=== PATIENT | male | born 1955 | race Caucasian/White ===

== ENCOUNTER 2024-05-12 12:59 | Emergency (ER) | payer MEDICARE, SELFPAY ==
[2024-05-12 13:02] VITALS: BP 146/100
[2024-05-12 13:31] LABS: % Basophils 0.9 % (0-2); % Eosinophils 4.5 % (0-6); % Immature Granulocytes 0.1 % (0-0.5); % Lymphocytes 28.9 % (20.5-51.1); % Monocytes 7.1 % (1.7-9.3); % Neutrophils 58.5 % (42.2-75.2); Absolute Basophils 0.1 10^3/uL (0-0.2); Absolute Eosinophils 0.3 10^3/uL (0-0.7); Absolute Monocytes 0.5 10^3/uL (0.1-0.6); Hematocrit 41.9 % (39.0-52.0); Hemoglobin 14.9 g/dL (13.0-18.0); Mean Corp Hgb Conc. 35.6 g/dL (33.0-37.0); Mean Corpuscular Hgb 31.7 pg (27.0-31.0); Mean Corpuscular Volume 89.1 fL (80.0-94.0); Mean Platelet Volume 10.2 fL (7.4-10.4); Nucleated Red Blood Cells % 0 % (-); Platelet Count 207 10^3/uL (130-400); Red Cell Dist. Width 12.9 % (11.5-14.5); White Blood Cell Count 6.9 10^3/uL (4.8-10.8)
[2024-05-12 13:38] LABS: ALT (SGPT) 13 U/L (0-50); AST (SGOT) 25 U/L (17-59); Albumin 4.9 g/dl (3.5-5.0); Alkaline Phosphatase 53 U/L (38-126); Blood Urea Nitrogen 19 mg/dl (9-20); Calcium 9.7 mg/dl (8.4-10.2); Carbon Dioxide 26 mmol/L (22-30); Chloride 101 mmol/L (98-107); Glucose 162 mg/dl (70-99); Potassium 4.4 mmol/L (3.5-5.1); Sodium 140 mmol/L (135-145); Total Protein 8.1 g/dl (6.3-8.2); eGFR > 60.00
--- NOTE | 2024-05-12 13:47 | ED.GENMED ---
History of Present Illness
General
Chief Complaint: Abdominal Symptoms
Source: patient
Exam Limitations: none
Time Seen by Provider: 05/12/24 13:34
Nursing documentation reviewed up to this point in time: agreed with
History of Present Illness
History of Present Illness:
69-year-old male with history of NIDDM, bipolar/anxiety/depression, ADD, COPD presents stating that he feels 'something growing' pointing across his upper abdomen. He states it has increased in size over the past 3-4 weeks. Gets fleeting sharp
left upper quadrant pain at times. He denies any pain. He states it is just 'nagging' and worse when he is driving. He denies N/V/D/C. His last bowel movement was this morning. States he had a similar 'growth' RLQ and was told it was his muscle.
Has been eating and drinking well. He wants to get it checked out before he drives back to [place] where he lives. Is here visiting his son
Past History
Past History
ED Past Medical History: Asthma, Hypercholesterolemia (Borderline hypercholesterolemia), NIDDM, Psychiatric (Bipolar depression) and Other (Obstructive sleep apnea)
ED Past Surgical History: Other (hernia repair as )
Social History
Tobacco: Smoker (Quit smoking cigarettes but continues to smoke vapor e-cigarettes)
Alcohol: None
Personal: Single
Living: alone
Employment: Retired
Family History
Family History: Diabetes; Negative CAD
Review of Systems
Review of Systems
Allergies reviewed?: Yes
All Other Systems: ROS reviewed and negative except as documented in HPI and ROS
Constitutional: Denies fever
Respiratory: Denies trouble breathing
Cardiac: Denies chest pain
ABD/GI: Reports abdominal pain (fleeting sharp pain LUQ); Denies nausea, vomiting, diarrhea, constipated, bloody stools, black stools or anorexia
: Reports no symptoms
Musculoskeletal: Reports no symptoms
Skin: Reports no symptoms
Neurological: Reports no symptoms
Phy Exam
Physical Exam
Physical Exam:
GENERAL: No acute distress. A&Ox3.
CONSTITUTIONAL: Afebrile.
EYES: clear, conjunctivae normal
ENMT: moist mucus membranes, Pharynx nl
RESPIRATORY: Regular respirations, nonlabored, lungs clear.
CARDIOVASCULAR: Regular rate and rhythm, no murmurs, no rubs.
GI: Soft, nontender, normal BS.
MUSCULOSKELETAL: Moves with ease. Well perfused.
SKIN: Warm, dry, pink
PSYCH: Normal mood and affect. Well kept, interactive and appropriate
NEUROLOGIC: Awake, alert and oriented. No focal neurological deficits
Course
Orders/Labs/Results
Orders:
Orders
05/12/24 13:14
Complete Blood Count/With Diff Urgent
Comprehensive Metabolic Panel Urgent
Lipase Urgent
05/12/24 13:44
CT Abd/Pel (IV only)-DH only Urgent
Comment:
Reason For Exam: swelling left upper abdomen
Abnormal Lab Results
05/12/24
13:14
MCH 31.7 H pg
(27.0-31.0)
Glucose 162 H mg/dl
(70-99)
05/12/24 13:14
05/12/24 13:14
Vital Signs
Initial and Last Documented VS:
Initial Vital Signs
Temp Pulse Resp BP Pulse Ox
98.1 F 108 16 146/100 98
05/12/24 13:02 05/12/24 13:02 05/12/24 13:02 05/12/24 13:02 05/12/24 13:02
Last Documented Vital Signs
Temp Pulse Resp BP Pulse Ox
98.1 F 108 16 146/100 98
05/12/24 13:02 05/12/24 13:02 05/12/24 13:02 05/12/24 13:02 05/12/24 13:02
MDM/Problems Addressed
Differential Diagnosis Includes:
abdominal mass, hernia, muscle protrusion
MDM/Problems Addressed:
69-year-old male with history of NIDDM, bipolar/anxiety/depression, ADD, COPD presents stating that he feels 'something growing' pointing across his upper abdomen. He states it has increased in size over the past 3-4 weeks. Gets fleeting sharp
left upper quadrant pain at times. He denies any pain. He states it is just 'nagging' and worse when he is driving. He denies N/V/D/C. His last bowel movement was this morning. States he had a similar 'growth' RLQ and was told it was his muscle.
Has been eating and drinking well. He wants to get it checked out before he drives back to [place] where he lives. Is here visiting his son
3:00 PM:
CBC normal
CMP normal
CT abdomen pelvis with IV contrast shows no acute abnormality
Most likely abdominal muscle protrusion. Patient reassured. Copy of all results given to pt
*Critical Care Note
Total Time (30-74mins, 75-104mins- exclusive of procedures): Not Applicable
ED Attending Note
-
Portions of this chart may have been created with voice recognition software.� Occasional wrong word or��sound alike� substitutions may have occurred due to the inherent limitations of voice recognition software.
Discharge Plan
Departure
Patient Disposition: Home (Routine Discharge)
Date of Disposition: 05/12/24
Time of Disposition: 15:03
Patient with high blood pressure during this ER visit?: No
Condition: Good
Discharge Problem:
Abdominal wall bulge
Prescriptions:
No Action
Depakote:
1 tab PO HS
Patient Comments:
'I am not sure if this pill is 250 mg or 500 mg because I have been taking it for so long.'
Lamictal
75 mg PO DAILY
Melatonin 10 mg Tablet
1 tab PO HS PRN (Reason: sleeping trouble)
Ritalin 20 MG
20 mg PO QID
Referrals:
PRIVATE,PHYSICIAN [Family Provider] -
Activity Restrictions/Additional Instructions:
As we discussed, your workup here is totally normal, there is nothing on your abdominal CAT scan that is abnormal.
What you see and feel are most likely abdominal muscles
Interventions
Interventions:
*Risk Screen - Suicide Last Done: 05/12/24 13:02
*General Assessment Last Done: 05/12/24 13:02
*Neglect/Abuse Screening Last Done: 05/12/24 13:02
*ED COVID-19 Vaccine History Last Done: 05/12/24 13:02
*Nursing Disposition Last Done: 05/12/24 15:27
JJ-Yhcpgy-Apyeuaekyi Assessment Last Done: 05/12/24 15:10
Discharge Date and Time
Discharge Date/Time: 05/12/24 15:28
Print Language: PERSIAN
[2024-05-12 13:49] VITALS: BMI 26.9
[2024-05-12 14:10] LABS: Lipase 115 U/L (23-300)
== END 2024-05-12 15:28 | disposition home or self-care (01) ==
LOC: EMR 12:59
PROVIDERS: EMERGENCY PHYSICIAN Emergency Medicine
DX: R19.02 Left upper quadrant abdominal swelling, mass and lump (principal); E11.9 Type 2 diabetes mellitus without complications; E78.00 Pure hypercholesterolemia, unspecified; G47.33 Obstructive sleep apnea (adult) (pediatric); J44.89 Other specified chronic obstructive pulmonary disease; F17.290 Nicotine dependence, other tobacco product, uncomplicated
CPT/HCPCS: 99284; 74177; 80053; 83690; 85025; Q9967